=== PATIENT | female | born 1955 | race Caucasian/White ===

== ENCOUNTER → 2016-09-12 | Outpatient (CLI) | payer BC ==
[~2016-09-12] MED LIST: REGADENOSON 0.4 MG/5 ML DISP.SYRIN. IV ONE
--- NOTE | 2016-09-12 17:05 | PCVCIMAG ---
APPROVED REPORT Study performed: 09/12/2016 08:37:00 EXAM: Comprehensive 2D, Doppler, and color-flow Echocardiogram Status: routine Other Information Study Quality: Adequate Indications Murmur, Family History CAD. PVC's 2D Dimensions LVEF(%): 50.63 (>50%) IVSd: 6.55 (7-11mm)LVOT Diam: 19.41 (18-24mm) LVDd: 55.83 mm PWd: 8.44 (7-11mm) LVDs: 41.26 (25-40mm) Left Atrium: 29.62 (27-40mm) Aortic Root: 33.15 mm LV Single Plane 4CH: 46.97 % LV Single Plane 2CH: 57.97 %Hernandez's LVEF: 52.47 % Biplane EF: 52.1 % Volumes Left Atrial Volume (Systole) Single Plane 4CH: 29.64 mLSingle Plane 2CH: 13.58 mL LA ESV Index: 13.00 mL/m2 Aortic Valve AoV Peak Rafael.: 1.81 m/s AO Peak Gr.: 13.09 mmHgLVOT Max P.84 mmHg LVOT Max V: 0.98 m/s VERONICA Vmax: 1.60 cm2 AI Vmax: 3.75 m/s AI Will: 2.44 m/s2 AI PHT: 444.50 ms Mitral Valve E/A Ratio: 0.9 MV Decel. Time: 182.71 ms MV E Max Rafael.: 0.68 m/s MV A Rafael.: 0.76 m/s TDI E/Lateral E': 8.50E/Medial E': 8.50 Medial E' Rafael.: 0.08 m/s Lateral E' Rafael.: 0.08 m/s Pulmonary Valve PV Peak Gr.: 2.55 mmHg Pulmonary Vein P Vein S: 0.68 m/sP Vein A: 0.46 m/s P Vein D: 0.39 m/sP Vein A Dur.: 93.4 msec P Vein S/D Ratio: 1.74 Left Ventricle Left ventricle is mildly dilated. There is normal LV segmental wall motion. There is normal left ventricular wall thickness. The left ventricular ejection fraction is within the normal range. LVEF is 50%. The left ventricular diastolic function is normal. Right Ventricle The right ventricle is normal size. The right ventricular systolic function is normal. Atria The left atrium size is normal. The right atrium size is normal. Aortic Valve Aortic valve is bicuspid. Mild aortic regurgitation. There is no aortic valvular stenosis. Mitral Valve The mitral valve is normal in structure. Trace mitral regurgitation. No evidence of mitral valve stenosis. Tricuspid Valve The tricuspid valve is normal in structure. Mild tricuspid regurgitation. Pulmonic Valve The pulmonary valve is normal in structure. Trace pulmonic regurgitation. Great Vessels The aortic root is normal in size. The ascending aorta is mildly dilated measuring at 4.2. IVC is normal in size and collapses with >50% inspiration Pericardium There is no pericardial effusion. <Conclusion> Left ventricle is mildly dilated. LVEF is 50%. Aortic valve is bicuspid. Mild aortic regurgitation. There is no aortic valvular stenosis. The mitral valve is normal in structure. Trace mitral regurgitation. The tricuspid valve is normal in structure. Mild tricuspid regurgitation. The pulmonary valve is normal in structure. Trace pulmonic regurgitation. The aortic root is normal in size. The ascending aorta is mildly dilated measuring at 4.2.
--- NOTE | 2016-09-12 18:07 | PCVCIMAG ---
APPROVED REPORT Exam: Nuclear Stress Test Indication: High Calcium Score Patient Location: Out-Patient Stress Nurse: Tianna Ambrose RN, Shelly Roe RN NH Tech:Jenifer Cohen [facility] Ht: 5 ft 4 in Wt: 150 lbs BSA: 1.73 m2 HR: 71 bpm BP: 119/70 mmHg BMI: 25.7 Rhythm: SR with PVC's Medical History Medical History: Hyperlipidemia, Family history of CAD Medications: Atorvastatin Allergies: Cephalexin Cardiac Risk Factors: Age Pretest Chest Pain Characteristics: No chest pain Exercise History: Physically active NM EXAM: Myocardial Perfusion REST/STRESS Imaging Protocol: Rest Tc-99m/Stress Tc-99m 1 day Resting Data Rest SPECT myocardial perfusion imaging was performed in supine position 45 minutes following the intravenous injection of 10.8 mCi of Tc-99m Sestamibi. Time of rest injection: 0900 Date: 09/12/2016 Pharmacologic Stress Pharmacologic stress test was performed by injecting Regadenoson 0.4 mg IV push followed by the intravenous injection of 32.4 mCi of Tc-99m Sestamibi. Time of stress injection: 1045 Date: 09/12/2016 Administration Route: IV Administration Site: Right Arm Gated Stress SPECT was performed 45 minutes after stress injection. The images were gated to evaluate regional wall motion and calculate left ventricular ejection fraction. Study Data Post stress, the left ventricular ejection was 53%.. SSS: 5 SRS: 8 SDS: 0 TID = 0.94. Perfusion There is a large area of moderately reduced uptake in the entire segment of the anterior wall which is seen on the stress images as well as the resting images. This area thickens and moves normally and is most consistent with attenuation artifact. Wall Motion Normal left ventricular wall motion. Nuclear Conclusion 1. LOW RISK STUDY Interpreted by: Clinton Pickering MD Electronically Approved: 09/12/2016 18:06:44 Stress Test Details Stress Test: Pharmacologic stress was paired with low level exercise. Reason for pharmacologic stress test: Breathing/allergies. HR Resting HR: 71 bpmMax Heart Rate (APMHR): 162 bpm Max HR Achieved: 113 bpmTarget HR (85% APMHR): 137 bpm % of APMHR: 69 Recovery HR: 80 bpm BP Resting BP: 119/70 mmHg Max BP: 115/80 mmHg Recovery BP: 125/58 mmHg ECG Resting ECG: SR with PVC Stress ECG: ST with PVC Arrhythmia: PVCs during resting, stress, and recovery Recovery ECG: SR with PVC Clinical Reason for Termination: Completed protocol Stress Symptoms: None Exercise duration: 4 min 00 sec Stress ECG Conclusion 1. ADEQUATE RESPONSE TO IV LEXISCAN 2. INADEQUATE HEART RATE FOR ECG DIAGNOSIS <Conclusion> 1. ADEQUATE RESPONSE TO IV LEXISCAN 2. INADEQUATE HEART RATE FOR ECG DIAGNOSIS
== END | disposition home or self-care (01) ==
LOC: PCVCIMAG 08:27
PROVIDERS: ATTEND Internal Medicine
DX: I08.3 Combined rheumatic disorders of mitral, aortic and tricuspid valves (principal); I49.3 Ventricular premature depolarization; I25.10 Atherosclerotic heart disease of native coronary artery without angina pectoris; R93.1 Abnormal findings on diagnostic imaging of heart and coronary circulation; E78.5 Hyperlipidemia, unspecified; Z82.49 Family history of ischemic heart disease and other diseases of the circulatory system
CPT/HCPCS: 78452; 93017; 93306; A9500; J2785